=== PATIENT | female | born 1980 | race Caucasian/White ===

== ENCOUNTER 2016-11-09 18:41 | Emergency (ER) | payer MEDICAID ==
[2016-11-09] MEDS ORDERED: cefTRIAXone 1 GM VIAL IM STA (20:31)
[2016-11-09] MEDS ORDERED: SULFAMETH/TRIMETH DS 800/160 MG TABLET PO STA (20:31)
[2016-11-09] MEDS ORDERED: SULFAMETH/TRIMETH DS 800/160 MG TABLET PO ONE (20:37)
[2016-11-09] MEDS ORDERED: cefTRIAXone 1 GM VIAL ONE (20:37)
[2016-11-09] MEDS ORDERED: LIDOCAINE 1% 2 ML VIAL ONE ×2 (20:37→20:38)
== END 2016-11-09 22:42 | disposition home or self-care (01) ==
DX: L03.115 Cellulitis of right lower limb (principal)
CPT/HCPCS: 93971; 96372; 99283; A9270

== ENCOUNTER 2024-03-20 18:38 | Emergency (ER) | payer MEDICAID ==
[2024-03-20 18:53] VITALS: BP 129/86; O2SAT 100
[2024-03-20 18:53] LABS: BILIRUBIN,URINE NEGATIVE (NEGATIVE); GLUCOSE, URINE (UA) NEGATIVE (NEGATIVE); KETONES,URINE (UA) NEGATIVE (NEGATIVE); LEUKOCYTE ESTERASE, URINE MODERATE (NEGATIVE); NITRITE,URINE NEGATIVE (NEGATIVE); OCCULT BLOOD,URINE LARGE (NEGATIVE); PROTEIN,URINE TRACE mg/dL (NEGATIVE); UROBILINOGEN,URINE 0.2 (NORMAL) E.U./dL (NORMAL)
[2024-03-20 19:10] LABS: CLARITY,URINE HAZY (CLEAR); HCG UR QUAL NEGATIVE
[2024-03-20 19:11] LABS: BACTERIA,URINE Many /HPF (None Seen); SQUAMOUS EPITHELIAL CELL,UR MANY Squamous (<= Few); WBC,URINE >25 /HPF (0-5)
--- NOTE | 2024-03-20 19:58 | ED Physician Documentation ---
PD HPI FEMALE - Stated complaint Stated Complaint: R SIDE PX - Chief complaint Chief Complaint: UTI - History obtained from History obtained from: Patient - Additional information Additional information: This is a 44-year-old female who presents with dysuria urgency and frequency voiding small amounts over the last couple days with some right lower back soreness. She reports subjective fever, no chills. She states her heart rate always runs fast she does not feel dehydrated, no nausea or vomiting. She has not had any chest pain or difficulty breathing. She denies any concern for STI. No significant medical history to her knowledge. Of note, the patient has allergy listed to penicillin as "anaphylaxis," however she states that she has tolerated amoxicillin in the past, and the penicillin allergy is from a childhood at which time she had a rash. Review of Systems Constitutional: reports: Fever Eyes: reports: Reviewed and negative Ears: reports: Reviewed and negative Nose: reports: Reviewed and negative Throat: reports: Reviewed and negative Cardiac: reports: Reviewed and negative Respiratory: reports: Reviewed and negative GI: reports: Reviewed and negative : reports: Dysuria, Frequency, Hesitancy Skin: reports: Reviewed and negative Musculoskeletal: reports: Back pain PD PAST MEDICAL HISTORY - Past Medical History Past Medical History: Yes Cardiovascular: None Respiratory: None Neuro: None Endocrine/Autoimmune: None GI: Hepatitis CLIN TECH: None HEENT: None Psych: None Musculoskeletal: None Derm: None - Past Surgical History Past Surgical History: Yes /CLIN TECH: section - Present Medications Home Medications: Ambulatory Orders Medication Instructions Recorded Confirmed Buprenorphine HCl/Naloxone HCl 0.5 mg ORAL DAILY 03/20/24 03/20/24 [Suboxone 8 mg-2 mg Sl Film] Dextroamphetamine/Amphetamine 20 mg PO DAILY 03/20/24 03/20/24 [Adderall 20 mg Tablet] Sulfamethox/Trimeth 800/160 1 each PO BID #14 tablet 03/20/24 [Bactrim Ds 800/160] - Allergies Allergies/Adverse Reactions: Allergies Allergy/AdvReac Type Severity Reaction Status Date / Time penicillamine Allergy Anaphylaxis Verified 03/20/24 18:40 - Social History Does the pt smoke?: Yes Smoking Status: Current every day smoker Does the pt drink ETOH?: No Does the pt have substance abuse?: Yes Substance Use and Type: Marijuana - Immunizations Immunizations are current?: Yes Immunizations: TDAP current <10years - POLST Patient has POLST: No PD ED PE NORMAL - Vitals Vital signs reviewed: Yes - General General: Alert and oriented X 3, No acute distress, Well developed/nourished - HEENT HEENT: Atraumatic, Moist mucous membranes - Cardiac Cardiac: RRR, No murmur, Other (Tachycardic, regular) - Respiratory Respiratory: No respiratory distress, Clear bilaterally - Abdomen Abdomen: Normal bowel sounds, Soft, Non tender, Non distended - Back Back: No CVA TTP, No spinal TTP, Other (No lower back pain on palpation) - Derm Derm: Normal color, Warm and dry, No rash - Neuro Neuro: Alert and oriented X 3 Eye Opening: Spontaneous Motor: Obeys Commands Verbal: Oriented GCS Score: 15 Results - Vitals Vitals: Vital Signs - 24 hr 03/20/24 18:41 Temperature 37.4 C Heart Rate 115 H Respiratory 16 Rate Blood Pressure 129/86 H O2 Saturation 100 Oxygen O2 Source Room air - Labs Labs: Laboratory Tests 03/20/24 18:50 Urine Color YELLOW Urine Clarity HAZY Urine pH 6.0 Ur Specific [place] 1.025 Urine Protein TRACE Urine Glucose (UA) NEGATIVE Urine Ketones NEGATIVE Urine Occult Blood LARGE H Urine Nitrite NEGATIVE Urine Bilirubin NEGATIVE Urine Urobilinogen 0.2 (NORMAL) Ur Leukocyte Esterase MODERATE H Urine RBC 11-25 H Urine WBC >25 H Ur Squamous Epith Cells MANY Squamous H Urine Bacteria Many H Ur Microscopic Review INDICATED Urine Culture Comments NOT INDICATED Urine HCG, Qual NEGATIVE PD Medical Decision Making - ED course Complexity details: reviewed results, considered differential, d/w patient ED course: This is a 44-year-old female who presents with dysuria urgency and frequency as well as right lower back soreness for the last several days. The patient is well-appearing here on physical exam though she is tachycardic but states that is normal for her, she is afebrile here and appears nontoxic. She does not have any CVAT on exam, no other systemic symptoms. Her urinalysis is suggestive of infection however and I recommended we treat for possible early Hussein for complicated UTI with a first dose of IV antibiotics was ceftriaxone and she will she will liter of fluid here. She will then discharge home with Bactrim. She was advised to return if she develops worsening symptoms, increasing flank pain, vomiting and not able to tolerate p.o. or other new concerns. She was vies that we will notify her by phone if we need to adjust her antibiotics. Departure - Departure Disposition: 01 Home, Self Care Clinical Impression: Complicated UTI (urinary tract infection) Condition: Good Instructions: ED UTI Cystitis Female Prescriptions: Sulfamethox/Trimeth 800/160 [Bactrim Ds 800/160] 1 each PO BID #14 tablet Comments: Please take antibiotics as prescribed and stay well-hydrated. If you develop worsening symptoms or no improvement with a course of treatment, please return to the ER. We will run a urine culture and if we need to adjust your antibiotics we will notify you by phone. Medication sent to [facility] in [place].
[2024-03-20] MEDS ORDERED: cefTRIAXone 1 GM VIAL ONE (20:03)
[2024-03-20] MEDS: cefTRIAXone 1 GM in SODIUM CHLORIDE 0.9% MINIBAG 100 ML IV STA (20:04)
[2024-03-20] MEDS: SODIUM CHLORIDE 0.9% 1,000 ML IV STA (20:05)
== END 2024-03-20 21:11 | disposition home or self-care (01) ==
LOC: ED 18:38
DX: N39.0 Urinary tract infection, site not specified (principal); F17.200 Nicotine dependence, unspecified, uncomplicated
CPT/HCPCS: 81001; 81003; 81025; 87086; 96365; 99284